=== PATIENT | female | born 1995 | race Caucasian/White ===

== ENCOUNTER 2017-06-03 21:59 | Emergency (ER) | payer OTHER ==
[~2017-06-03] VITALS: Ht 167.6 cm; Wt 74.8 kg
[2017-06-03 22:04] VITALS: BP 118/75
== END 2017-06-04 00:41 | disposition left against medical advice (07) ==
LOC: EDBD 21:59 → ER 22:06
DX: F10.10 Alcohol abuse, uncomplicated (principal); Z53.21 Procedure and treatment not carried out due to patient leaving prior to being seen by health care provider